=== PATIENT | male | born 2000 | race Caucasian/White ===

== ENCOUNTER 2018-11-20 01:16 | Emergency (ER) | payer OTHER ==
[~2018-11-20] VITALS: Ht 172.7 cm; Wt 95.0 kg
[2018-11-20 01:19] VITALS: BP 154/72; PULSE 74; RESP 18; Ht 172.7 cm; Wt 95.0 kg
[2018-11-20] MEDS ORDERED: morphine 4 MG/ML VIAL IM STA (03:51)
[2018-11-20] MEDS ORDERED: ONDANSETRON (ODT) 4 MG TAB ODT STA (03:51)
--- NOTE | 2018-11-20 03:51 | ERD ---
ER Documentation Chief Complaint Chief Complaint BILAT 4TH DIGIT LACS TO HANDS, R LOWER LEG INJURY S/P WORK ACCIDENT HPI This is a 18-year-old male who presents emergency department with multiple complaints, including right lower extremity swelling/deformity/pain, bilateral hand/finger laceration that happened at around 10:40 PM today at work. Stated that he is a right-handed. ROS All systems reviewed and are negative except as per history of present illness. Medications Home Meds Active Scripts Ibuprofen* (Motrin*) 800 Mg Tab, 800 MG PO Q8 PRN for PAIN AND OR ELEVATED TEMP, #30 TAB Prov:AYUSH NEWSOME F 11/20/18 Cephalexin* (Keflex*) 500 Mg Capsule, 500 MG PO BID for 5 Days, CAP Prov:PASILABANDIONIAR F 11/20/18 Allergies Allergies: Coded Allergies: No Known Allergy (Unverified , 05/18/13) PMhx/Soc Medical and Surgical Hx: pt denies Medical Hx, pt denies Surgical Hx Hx Alcohol Use: No Hx Substance Use: No Hx Tobacco Use: No Smoking Status: Never smoker Physical Exam Vitals Physical Exam Const: No acute distress Head: Atraumatic Eyes: Normal Conjunctiva ENT: Normal External Ears, Nose and Mouth. Neck: Full range of motion. No meningismus. Resp: Clear to auscultation bilaterally Cardio: Regular rate and rhythm, no murmurs Abd: Soft, non tender, non distended. Normal bowel sounds Skin: No petechiae or rashes Back: No midline or flank tenderness Ext: No cyanosis, or edema. Left hand: No obvious deformity. No tenderness. Left ring finger: Volar area/proximal/phalanx has a laceration measuring approximately 3 cm in length. No active bleeding. MCP/PIP/DIP has good and full range of motion with good and full flexion with a score of 5/5. Low suspicion of tendon injury. Left index/middle/pinky fingers: Unremarkable. Left radial pulse is within normal limits. Left wrist is unremarkable. Capillary refills to left upper extremity is less than 2 seconds. Right hand: No obvious deformity. No tenderness. Right ring finger: Volar area/proximal/phalanx has a laceration measuring approximately 3 cm in length. No active bleeding. MCP/PIP/DIP has good and full range of motion with good and full flexion with a score of 5/5. Low suspicion of tendon injury. Right index/middle/pinky fingers: Unremarkable. Right radial pulse is within normal limits. Right wrist is unremarkable. Right ankle: Swelling noted with tenderness to palpation. No obvious deformity. Has good range of motion. Right foot: Swelling and tenderness noted. No deformity. Right pedal pulses within normal limits. Right toes has good and full range of motion. Right tibia and fibula: Distal area has a swelling and tenderness. No right calf tenderness. Proximal area has no swelling tenderness. Right knee: Unremarkable. Bilateral hips are stable and unremarkable. Left lower extremity is unremarkable. Capillary refills to right upper extremity is unremarkable. No neurovascular deficits. Neur: Awake and alert. No neurological deficits. Psych: Normal Mood and Affect Results 24 hrs Current Medications Medications Dose Sig/Jose Start Time Status Last (Trade) Ordered Route PRN Stop Time Admin Dose Reason Admin Diphtheria/ 0.5 ml ONCE ONCE 11/20/18 DC 11/20/18 Tetanus/Acell IM* 04:00 11/20/18 04:19 Pertussis 04:01 (Adacel) Morphine 4 mg ONCE STAT 11/20/18 DC 11/20/18 Sulfate IM 03:51 11/20/18 04:19 (morphine) 03:56 Ondansetron 4 mg ONCE STAT 11/20/18 DC 11/20/18 HCl (Zofran ODT 03:51 11/20/18 04:19 Odt) 03:56 Lidocaine 20 ml ONCE ONCE 11/20/18 DC (Xylocaine SC 04:00 11/20/18 1% (Mdv) 20 04:01 ml) Procedures/MDM Diagnostic tests: X-ray of the right tibia and fibula: 1. No acute fracture dislocation foreign body. 2. Mild soft tissue swelling along the anterior distal right leg without foreign body. X-ray of the right ankle: 1. No acute fracture or dislocation. 2. Mild soft tissue swelling along the anterior distal right leg without foreign body. X-ray of the right foot: No evidence acute fracture dislocation or foreign body. Bilateral hand x-ray: No evidence acute fractures dislocations or foreign bodies bilaterally. Treatment: Adacel IM. Morphine IM. Ivan wrap was applied by EMT to right ankle. Crutches with crutch training was provided by EMT. Procedure: Laceration repair. Left ring finger/volar area: Betadine prep. Lidocaine 1% 2 cc digital block and subcu. Copious/pressure irrigation with saline and Betadine. Wound was explored. No foreign body seen. Bone not visualized. Tendon not visualized. Ethilon 4-0 x8 simple interrupted sutures. Right ring finger/volar area: Betadine prep. Lidocaine 1% 2 cc digital block and subcu. Copious/pressure irrigation with saline and Betadine. Wound was explored. No foreign body seen. Bone not visualized. Tendon not visualized. Ethilon 4-0 x8 simple interrupted sutures. Bacitracin and dressing was applied by EMT. Re-evaluation: No neurovascular deficits prior to and after the application of Ivan wrap. Bilateral hands has good and full function. No neurovascular deficits. No neurological deficits. Stated that he feels much better at this time and that he is ready to go home. Patient stated that he is comfortable to go home. Differential diagnosis I have low suspicion for displaced fracture, fracture, Lisfranc fracture, compartment syndrome, tendon injury, retained foreign body. Final diagnosis: Right ankle sprain. Finger laceration. Prescription: Keflex. Motrin. Follow-up with PCP in the next 24-48 hours. Come back in 2 days for wound check. Come back in 7 to 10 days for suture removal. Come back here in the emergency department for any new symptoms or any worsening symptoms. All questions and concerns were answered. Patient and family members verbalized understanding and agreed with plan of care. Hemodynamically stable on discharge. Departure Diagnosis: Primary Impression: Ankle sprain Additional Impressions: Finger laceration Hand laceration Hand injury Condition: Stable Additional Instructions: Follow-up with PCP in the next 24-48 hours. Come back in 2 days for wound check. Come back in 7 to 10 days for suture removal. Come back here in the emergency department for any new symptoms or any worsening symptoms. AYUSH NEWSOME Nov 20, 2018 03:51
[2018-11-20] MEDS ORDERED: LIDOCAINE 1% (MDV) 20 ML INJ SC ONE (04:00)
[2018-11-20] MEDS ORDERED: DIPHTH/TET/ACEL PERTUSS (ADULT) 0.5 ML VIAL IM* ONE (04:00)
[2018-11-20] MEDS ORDERED: CEPH-443 PO (05:29)
[2018-11-20] MEDS ORDERED: IBUP800T48 PO (05:29)
== END 2018-11-20 07:06 | disposition home or self-care (01) ==
LOC: FTE 01:16
DX: S61.215A Laceration without foreign body of left ring finger without damage to nail, initial encounter (principal); S61.214A Laceration without foreign body of right ring finger without damage to nail, initial encounter; S93.401A Sprain of unspecified ligament of right ankle, initial encounter; X58.XXXA Exposure to other specified factors, initial encounter; Y92.89 Other specified places as the place of occurrence of the external cause; Z23 Encounter for immunization
CPT/HCPCS: 12002; 73130; 73590; 73610; 73630; 90471; 90715; 96372; J2270; Z7502; Z7610